=== PATIENT | male | born 1975 | race African-American/Black ===

== ENCOUNTER 2019-09-01 14:17 | Emergency (ER) | payer OTHER, SELFPAY ==
[2019-09-01 14:29] VITALS: BP 144/77; PULSE 86; RESP 18; TEMP 36.2; O2SAT 98
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
== END 2019-09-01 15:36 | disposition home or self-care (01) ==
PROVIDERS: Emergency Provider General Practice
DX: S39.012A Strain of muscle, fascia and tendon of lower back, initial encounter (principal); S29.012A Strain of muscle and tendon of back wall of thorax, initial encounter; S16.1XXA Strain of muscle, fascia and tendon at neck level, initial encounter; Z87.891 Personal history of nicotine dependence; V49.40XA Driver injured in collision with unspecified motor vehicles in traffic accident, initial encounter
CPT/HCPCS: 99283